=== PATIENT | male | born 1955 | race Caucasian/White ===

== ENCOUNTER 2024-09-11 01:08 | Emergency (ER) | payer MEDICARE ==
[~2024-09-11] VITALS: Ht 182.9 cm; Wt 76.0 kg
[2024-09-11] MEDS ORDERED: oxyCODONE 5MG/ ACETAMINOPHEN 325MG TAB PO ONE (01:25)
[2024-09-11 07:52] VITALS: BP 138/59
== END 2024-09-11 07:53 | disposition home or self-care (01) ==
LOC: ED 01:08
DX: S01.21XA Laceration without foreign body of nose, initial encounter (principal); S51.811A Laceration without foreign body of right forearm, initial encounter; S61.412A Laceration without foreign body of left hand, initial encounter; I10 Essential (primary) hypertension; J44.89 Other specified chronic obstructive pulmonary disease; F17.210 Nicotine dependence, cigarettes, uncomplicated; W18.30XA Fall on same level, unspecified, initial encounter; Z91.81 History of falling